=== PATIENT | male | born 1975 | race Caucasian/White ===

== ENCOUNTER 2017-03-31 03:29 | Emergency (ER) | payer OTHER ==
[2017-03-31 04:32] LABS: HEMOGLOBIN 14.8 gm/dl (14.0-17.5); RED BLOOD COUNT 5.1 M/UL (4.20-5.50); WHITE BLOOD COUNT 8.4 K/UL (4.5-11.0)
[2017-03-31 04:50] LABS: BUN/CREATININE RATIO 14 (0-10)
== END 2017-03-31 11:30 | disposition home or self-care (01) ==
LOC: ER1 03:29
PROVIDERS: Physician Assistant
DX: N13.2 Hydronephrosis with renal and ureteral calculous obstruction (principal); E87.6 Hypokalemia
CPT/HCPCS: 36415; 80053; 81001; 83690; 85025; 96374; 96375; 96376; 99284; J1885; J2270; J2405